=== PATIENT | female | born 1995 | race Caucasian/White ===

== ENCOUNTER 2017-05-08 18:08 | Emergency (ER) | payer MEDICAID ==
[~2017-05-08] VITALS: Ht 160 cm; Wt 70.0 kg
[~2017-05-08 18:08] MED LIST: MULT-65 PO; Z.0.NO CURRENT MEDS; [UNRECOGNIZED DRUG - CODE] VA
[2017-05-08 18:09] VITALS: BP 124/73; PULSE 88; RESP 20; TEMP 98.3; O2SAT 100
--- NOTE | 2017-05-08 19:21 | PD ---
Physical Exam Time Seen by Provider: 19:17 Narrative 21yo F,, with pelvic pain and cramping x 1 week. LMP began Dec 30; we calculated 18 weeks using wheel in triage . We called [facility] and they said 14 weeks and needs to be seen in ER. Patient denies vag dc, bleeding, dysuria. 2nd . Patient seen in triage. VS reviewed. Awaiting bed placement. Data Data Last Documented VS Vital Signs Date Time Temp Pulse Resp B/P Pulse Ox O2 Delivery O2 Flow Rate FiO2 05/08/17 18:09 98.3 88 20 124/73 100 Room Air MDM Supervised Visit with PATEL: Susanna Comer May 08, 2017 19:21
--- NOTE | 2017-05-08 21:11 | PD ---
HPI Chief Complaint: Related Problem Time Seen by Provider: 20:59 Travel History International Travel<30 days: No Contact w/Intl Traveler<30days: No Traveled to known affect area: No History of Present Illness HPI 21yo F with no PMH presents to the ED with c/o pelvic pain for 1 week. Pain is crampy, intermittent. Also with yellow vaginal discharge. Denies any fever, chest pain, sob, n/v, abdominal pain, vaginal discharge or urinary complaints. Pt states her LMP is 01/05/17 which puts her at [id number] . Pt has not seen an OBGYN but states she has an appointment. PFSH Past Medical History Medical History: Denies Significant Hx Diminished Hearing: No Immunizations Current: Yes Tetanus Vaccination: Unknown Influenza Vaccination: No ?: LMP: 01-05-17 : 1 Para: 1 Past Surgical History Surgical History: No Previous Surgery Section: Yes Genitourinary Surgery: No Social History Alcohol Use: No Tobacco Use: No Substance Use: No Allergies-Medications (Allergen,Severity, Reaction): Coded Allergies: No Known Allergies (Verified , 05/08/17) Reported Meds & Prescriptions Reported Meds & Active Scripts Active Tylenol (Acetaminophen) 325 Mg Tab 650 Mg PO Q6H PRN Clotrimazole 3 Day (Clotrimazole) 3 Day Cre 1 Appl [facility] DAILY 3 Days Reported Multi-Vitamin Daily (Multivitamins) Daily Tab 1 Tab PO DAILY No Current Meds (Miscellaneous Medication) Misc Review of Systems Except as stated in HPI: all other systems reviewed are Neg Physical Exam Narrative GENERAL: 21yo F not in distress. SKIN: Focused skin assessment warm/dry. HEAD: Atraumatic. Normocephalic. CARDIOVASCULAR: Regular rate and rhythm. No murmur appreciated. RESPIRATORY: No accessory muscle use. Clear to auscultation. Breath sounds equal bilaterally. GASTROINTESTINAL: Abdomen soft, NT/ND. Pain is left pubic symphysis. PELVIC: Small amount of white discharge. Appears physiologic. No blood. Cervix closed. No CMT or adnexal tenderness bilaterally. MUSCULOSKELETAL: No obvious deformities. No clubbing. No cyanosis. No edema. NEUROLOGICAL: Awake and alert. No obvious cranial nerve deficits. Motor grossly within normal limits. Normal speech. PSYCHIATRIC: Appropriate mood and affect; insight and judgment normal. Data Data Last Documented VS Vital Signs Date Time Temp Pulse Resp B/P Pulse Ox O2 Delivery O2 Flow Rate FiO2 05/08/17 18:09 98.3 88 20 124/73 100 Room Air Orders Beta Hcg (Quant/Titer) (05/08/17 21:04) Complete Blood Count With Diff (05/08/17 21:04) Basic Metabolic Panel (Bmp) (05/08/17 21:04) Gc And Chlamydia Pcr (05/08/17 21:04) Type And Screen (05/08/17 21:04) Wet Prep Profile (05/08/17 21:04) Urinalysis - C+S If Indicated (05/08/17 21:04) Acetaminophen (Tylenol) (05/08/17 21:15) Ed Poc Ultrasound (05/08/17 ) Labs Laboratory Tests Test 05/08/17 05/08/17 21:40 22:18 White Blood Count 10.3 TH/MM3 Red Blood Count 4.71 MIL/MM3 Hemoglobin 12.3 GM/DL Hematocrit 36.6 % Mean Corpuscular Volume 77.7 FL Mean Corpuscular Hemoglobin 26.0 PG Mean Corpuscular Hemoglobin 33.5 % Concent Red Cell Distribution Width 16.2 % Platelet Count 168 TH/MM3 Mean Platelet Volume 9.1 FL Neutrophils (%) (Auto) 65.2 % Lymphocytes (%) (Auto) 25.5 % Monocytes (%) (Auto) 7.2 % Eosinophils (%) (Auto) 1.4 % Basophils (%) (Auto) 0.7 % Neutrophils # (Auto) 6.7 TH/MM3 Lymphocytes # (Auto) 2.6 TH/MM3 Monocytes # (Auto) 0.7 TH/MM3 Eosinophils # (Auto) 0.1 TH/MM3 Basophils # (Auto) 0.1 TH/MM3 CBC Comment DIFF FINAL Differential Comment Urine Color YELLOW Urine Turbidity HAZY Urine pH 6.5 Urine Specific [place] 1.023 Urine Protein TRACE mg/dL Urine Glucose (UA) NEG mg/dL Urine Ketones NEG mg/dL Urine Occult Blood NEG Urine Nitrite NEG Urine Bilirubin NEG Urine Urobilinogen LESS THAN 2.0 MG/DL Urine Leukocyte Esterase SMALL Urine RBC 1 /hpf Urine WBC 3 /hpf Urine Squamous Epithelial 4 /hpf Cells Urine Mucus FEW /lpf Microscopic Urinalysis Comment CULT NOT INDICATED Sodium Level 134 MEQ/L Potassium Level 3.9 MEQ/L Chloride Level 102 MEQ/L Carbon Dioxide Level 24.1 MEQ/L Anion Gap 8 MEQ/L Blood Urea Nitrogen 7 MG/DL Creatinine 0.51 MG/DL Estimat Glomerular Filtration 149 ML/MIN Rate Random Glucose 86 MG/DL Calcium Level 8.8 MG/DL Human Chorionic Gonadotropin, [address] MIU/ML Quant Blood Type B POSITIVE Antibody Screen NEGATIVE Blood Bank Comment Clue Cells (Wet Prep) NONE SEEN Vaginal Trichomonas (Wet Prep) NONE SEEN Vaginal Yeast (Wet Prep) NONE SEEN MDM Medical Decision Making Medical Screen Exam Complete: Yes Emergency Medical Condition: Yes Differential Diagnosis UTI vs. bacterial vaginosis vs. yeast vs. Gonorrhea vs. chlamydia Narrative Course 21yo F with intermittent pelvic pain that is cramping for 1 week. Labs reviewed , [place] [address]. UA showed WBC of only 3. Culture not indicated. Wet prep negative. Type and screen B positive. Vital signs stable. Pt given acetaminophen and pain has resolved. Pt never had any abdominal pain. Procedures Procedure Narrative Emergency Department Pelvic ultrasound was performed with patient consent. The curvilinear probe was used in the transverse and sagittal views within the suprapubic region revealing single intrauterine . heart rate was 154. + movement. Diagnosis Primary Impression: Pelvic pain affecting Qualified Code: O26.892 - Pelvic pain affecting , second trimester Patient Instructions: General Instructions Departure Forms: Tests/Procedures Additional Instructions: Please follow up with your OBGYN in 1-2 days. Return to the ED if symptoms worsen. Med/Other Pt SpecificInfo: Prescription(s) given Scripts Acetaminophen (Tylenol)325 Mg [id number] Mg PO Q6H PRN (PAIN SCALE 1 TO 4) #20 TAB Ref 0 Prov:Sneha Madrigal DO 05/08/17 Disposition: 01 DISCHARGE HOME Condition: Stable Sneha Madrigal DO May 08, 2017 21:11
[2017-05-08] MEDS ORDERED: ACETAMINOPHEN 325 MG TAB PO ONE (21:15)
[2017-05-08 21:47] LABS: AUTOMATED NEUTROPHIL # 6.7 TH/MM3 (1.8-7.7); BASOPHIL # 0.1 TH/MM3 (0-0.2); BASOPHIL % 0.7 % (0.0-2.0); EOSINOPHIL # 0.1 TH/MM3 (0-0.4); EOSINOPHIL % 1.4 % (0.0-4.0); HEMATOCRIT 36.6 % (35.0-46.0); HEMO FLAGS DIFF FINAL; LYMPH % 25.5 % (9.0-44.0); LYMPHOCYTE # 2.6 TH/MM3 (1.0-4.8); MEAN CELL VOLUME 77.7 FL (80.0-100.0); MEAN CORPUSCULAR HGB CONC 33.5 % (32.0-36.0); MONO % 7.2 % (0.0-8.0); NEUT % 65.2 % (16.0-70.0); PLATELET COUNT 168 TH/MM3 (150-450); RED BLOOD COUNT 4.71 MIL/MM3 (4.00-5.30); RED CELL DISTRIBUTION WIDTH 16.2 % (11.6-17.2); WHITE BLOOD COUNT 10.3 TH/MM3 (4.0-11.0)
[2017-05-08 21:52] LABS: BLOOD, URINE NEG (NEG); COMMENT (UR) CULT NOT INDICATED; CULTURE IF INDICATED CULT NOT INDICATED; GLUCOSE,URINE NEG (NEG); KETONE, URINE NEG (NEG); MUCUS URINE FEW /lpf (OCC); NITRITE,URINE NEG (NEG); PH, URINE 6.5 (5.0-8.5); SQUAMOUS EPITHELIAL CELL URINE 4 /hpf (0-5); URINE COLOR YELLOW (YELLW/STRAW)
[2017-05-08 22:20] LABS: BICARBONATE 24.1 MEQ/L (21.0-32.0); POTASSIUM 3.9 MEQ/L (3.5-5.1)
[2017-05-08] MEDS ORDERED: TYLE325T PO (23:43)
[2017-05-09 01:06] LABS: CHLAMYDIA PCR NOT DETECTED (NOT DETECT); NEISSERIA PCR NOT DETECTED (NOT DETECT)
== END 2017-05-08 23:59 | disposition home or self-care (01) ==
LOC: NEPD 18:08
DX: O26.892 Other specified pregnancy related conditions, second trimester (principal); R10.2 Pelvic and perineal pain; Z79.899 Other long term (current) drug therapy; Z3A.17 17 weeks gestation of pregnancy
CPT/HCPCS: 80048; 81001; 84702; 85025; 86850; 86900; 86901; 87210; 87491; 87591; 99285